=== PATIENT | female | born 1985 | race Caucasian/White ===

== ENCOUNTER 2018-12-29 13:46 | Emergency (ER) | payer SELFPAY ==
[~2018-12-29] VITALS: Ht 165.1 cm; Wt 90.7 kg
--- NOTE | 2018-12-29 14:35 | NUR ---
TO CXR WITH [employer].
[2018-12-29] MEDS ORDERED: ALBU2.5V4 INH (14:36)
[2018-12-29] MEDS ORDERED: LIDOCAINE GEL (14:36)
[2018-12-29] MEDS ORDERED: RT-ALBUINH IH (14:36)
--- NOTE | 2018-12-29 14:45 | NUR ---
PT AMB TO RESTROOM WITHOUT RESP DIFFICULTY. URINE OBTAINED, CONCENTRATED IN COLOR AND SENT TO LAB.
--- NOTE | 2018-12-29 14:50 | NUR ---
VENIPUNCTURE PERFORMED PER RN. PT RESTING ON CART WITH 95% SAO2 ON RM AIR, NO DISTRESS NOTED.
[2018-12-29] MEDS ORDERED: ONDANSETRON 4 MG/2 ML (SDV) Z0FRAN IVP ONE (15:00)
[2018-12-29] MEDS ORDERED: RT-ALBUTEROL/IPRATROPIUM 3 ML (DUONEB) VIAL INH ONE (15:00)
[2018-12-29] MEDS ORDERED: NS IV 1000 ML 1,000 ML IV SCH (15:00)
--- NOTE | 2018-12-29 15:05 | ED Cough/URI ---
General Chief Complaint: Respiratory Problems Stated Complaint: FEVER,NAUSE,SOB Nursing Triage Note: ARRIVED PER POV, C/O SOA NOT RELIEVED WITH BREATHING TX RENDERER. PT HAS NO COUGH, NO RESP DISTRESS NOTED. PT IS AFEBRILE, FEVER EARLIER IN WEEK. MASK PLACED ON PT. Sepsis Screen: No Definite Risk Source: patient History of Present Illness Date Seen by Provider: Dec 29, 2018 Time Seen by Provider: 13:55 Initial Comments 33-year-old female presents with complaints of fever and chills for 1 week. She also reports a cough for a week. She's had nausea and vomiting and she can't keep anything down. She reports that she's had no change in her bowels. Has had several episodes of vomiting. She has a history of asthma and has tried doing a breathing treatment but did not feel like it helped any. She denies having any ill contacts. She has not taken her temperature but felt like she was running a fever. She's had chills and shaking. Timing/Duration: week (one) Severity/Quality: sputum (thick white) Prior Episodes/Possible Cause: no prior episodes Associated Symptoms: chest pain/soreness (left posterior chest, worse with cough and deep inspiration), cough, fever/chills (subjective), shortness of breath, wheezing Allergies and Home Medications Allergies Coded Allergies: No Known Drug Allergies (Unverified , 12/29/18) Home Medications Albuterol Sulfate 1 Puff Puff, 2 PUFF IH Q4H, (Reported) 1 PUFF = 90 MCG Albuterol Sulfate 2.5 Mg/3 Ml Vial.neb, 2.5 MG INH Q4H PRN for SHORTNESS OF BREATH, (Reported) Levofloxacin 750 Mg Tablet, 750 MG PO DAILY Prescribed by: PELON SORIANORT on 12/29/18 1609 Ondansetron 4 Mg Tab.rapdis, 4 MG PO Q6H PRN for NAUSEA/VOMITING Prescribed by: PELON SORIANORT on 12/29/18 1606 Patient Home Medication List Home Medication List Reviewed: Yes Review of Systems Review of Systems Constitutional: see HPI, chills, fever, malaise EENTM: No ear discharge, No ear pain Respiratory: cough, short of breath; No stridor; wheezing Cardiovascular: chest pain (left posterior chest wall pain) Gastrointestinal: No abdominal pain, No constipation, No diarrhea, No dysphagia Genitourinary: No decreased output, No dysuria Skin: No change in color, No dryness, No rash Psychiatric/Neurological: Denies Anxiety Hematologic/Lymphatic: Denies Anemia Past Ocgpluw-Mvcocm-Yfepws Hx Past Med/Social Hx: Reviewed Nursing Past Med/Soc Hx Patient Social History Alcohol Use: Rarely Uses Recreational Drug Use: No Smoking Status: Current Everyday Smoker Type Used: Cigarettes 2nd Hand Smoke Exposure: Yes Recent Foreign Travel: No (N) Contact w/Someone Who Travel: No (N) Recent Infectious Disease Expo: No Recent Hopitalizations: No Physical Abuse: No Sexual Abuse: No Mistreated: No Seasonal Allergies Seasonal Allergies: No Past Medical History Surgeries: Yes (REMOVAL OF ANAL TUMOR) Hysterectomy Respiratory: Yes Asthma Cardiac: No Neurological: No [employer] History: Hysterectomy Gastrointestinal: Yes (ANAL CA) Musculoskeletal: No Endocrine: No HEENT: No Cancer: Yes (ANAL) Cervical What Type of Treatment Did You: Surgical Intervention HYSTERECTOMY Psychosocial: No Integumentary: No Blood Disorders: No Physical Exam Vital Signs - First Documented 12/29/18 13:55 Temp 98.5 Pulse 94 Resp 18 B/P (MAP) 132/67 (88) Pulse Ox 93 O2 Delivery Room Air Capillary Refill : Less Than 3 Seconds Height: 5'5.00" Weight: 200lbs. oz. [id number]; BMI Method:Stated General Appearance: WD/WN, no apparent distress Eyes: Bilateral Eye PERRL, Bilateral Eye EOMI HEENT: PERRL/EOMI, normal ENT inspection, pharynx normal Neck: non-tender, full range of motion, supple, normal inspection Respiratory: no respiratory distress, no accessory muscle use, decreased breath sounds, wheezing (throughout), other (tender to palpation on posterior left chest wall) Cardiovascular: regular rate, rhythm, no edema Gastrointestinal: normal bowel sounds, soft, no pulsatile mass, tenderness ( right side and epigastric area) Extremities: normal range of motion, non-tender, normal inspection Neurologic/Psychiatric: bearing maker II-XII nml as tested, no motor/sensory deficits, alert, normal mood/affect, oriented x 3 Skin: normal color, warm/dry Progress/Results/Core Measures Suspected Sepsis Recent Fever Within 48 Hours: No Infection Criteria Present: Suspected New Infection New/Unexplained Altered Menta: No Sepsis Screen: No Definite Risk SIRS Temperature:98.5 Pulse: 94 Respiratory Rate: 18 Laboratory Tests 12/29/18 14:50: White Blood Count 6.0 Blood Pressure 132 /67 Mean: 88 Laboratory Tests 12/29/18 14:50: Creatinine 0.80, Platelet Count 322, Total Bilirubin 0.5 Results/Orders Lab Results Laboratory Tests Test 12/29/18 14:45 12/29/18 14:50 Range/Units Urine Color YELLOW Urine Clarity CLOUDY Urine pH 6.5 5-9 Urine Specific [place] 1.015 L 1.016-1.022 Urine Protein TRACE NEGATIVE Urine Glucose (UA) NEGATIVE NEGATIVE Urine Ketones NEGATIVE NEGATIVE Urine Nitrite NEGATIVE NEGATIVE Urine Bilirubin NEGATIVE NEGATIVE Urine Urobilinogen 0.2 NORMAL MG/DL Urine Leukocyte Esterase 2+ H NEGATIVE Urine RBC (Auto) 1+ H NEGATIVE Urine RBC 0-2 /HPF Urine WBC 10-25 H /HPF Urine Squamous Epithelial Cells 10-25 H /HPF Urine Crystals NONE /LPF Urine Bacteria LARGE H /HPF Urine Casts NONE /LPF Urine Mucus LARGE H /LPF Urine Culture Indicated YES White Blood Count 6.0 4.3-11.0 10^3/uL Red Blood Count 4.29 L 4.35-5.85 10^6/uL Hemoglobin 11.7 11.5-16.0 G/DL Hematocrit 37 35-52 % Mean Corpuscular Volume 86 80-99 FL Mean Corpuscular Hemoglobin 27 25-34 PG Mean Corpuscular Hemoglobin Concent 32 32-36 G/DL Red Cell Distribution Width 16.7 H 10.0-14.5 % Platelet Count 322 130-400 10^3/uL Mean Platelet Volume 12.1 H 7.4-10.4 FL Neutrophils (%) (Auto) 71 42-75 % Lymphocytes (%) (Auto) 26 12-44 % Monocytes (%) (Auto) 2 0-12 % Eosinophils (%) (Auto) 0 0-10 % Basophils (%) (Auto) 0 0-10 % Neutrophils # (Auto) 4.2 1.8-7.8 X 10^3 Lymphocytes # (Auto) 1.6 1.0-4.0 X 10^3 Monocytes # (Auto) 0.1 0.0-1.0 X 10^3 Eosinophils # (Auto) 0.0 0.0-0.3 10^3/uL Basophils # (Auto) 0.0 0.0-0.1 10^3/uL Sodium Level 137 135-145 MMOL/L Potassium Level 3.6 3.6-5.0 MMOL/L Chloride Level 97 L 98-107 MMOL/L Carbon Dioxide Level 26 21-32 MMOL/L Anion Gap 14 5-14 MMOL/L Blood Urea Nitrogen 8 7-18 MG/DL Creatinine 0.80 0.60-1.30 MG/DL Estimat Glomerular Filtration Rate > 60 BUN/Creatinine Ratio 10 Glucose Level 95 70-105 MG/DL Calcium Level 9.1 8.5-10.1 MG/DL Corrected Calcium 9.3 8.5-10.1 MG/DL Total Bilirubin 0.5 0.1-1.0 MG/DL Aspartate Amino Transf (AST/SGOT) 20 5-34 U/L Alanine Aminotransferase (ALT/SGPT) 20 0-55 U/L Alkaline Phosphatase 110 40-136 U/L Total Protein 9.1 H 6.4-8.2 GM/DL Albumin 3.8 3.2-4.5 GM/DL My Orders Orders - PELON NOWAK MD Chest Pa/Lat (2 View) (12/29/18 14:27) Cbc With Automated Diff (12/29/18 14:27) Comprehensive Metabolic Panel (12/29/18 14:27) Urinalysis (12/29/18 14:27) Albuterol/Ipra Inhalation Soln (Duoneb I (12/29/18 15:00) Ns Iv 1000 Ml (Sodium Chloride 0.9%) (12/29/18 15:00) Ondansetron Injection (Zofran Injectio (12/29/18 15:00) Svn Small Volume Nebulizer (12/29/18 14:54) Urine Culture (12/29/18 14:45) Ceftriaxone For Iv Use (Rocephin For I (12/29/18 16:00) Medications Given in ED Current Medications Medications Dose Ordered Sig/Shaw Route Start Time Stop Time Status Last Admin Dose Admin Albuterol/ Ipratropium 3 ml ONCE ONCE INH 12/29/18 15:00 12/29/18 15:01 DC 12/29/18 15:48 3 ML Ceftriaxone Sodium 1000 mg/ Sterile Water 10 ml @ 200 mls/hr ONCE ONCE IV 12/29/18 16:00 12/29/18 16:02 DC 12/29/18 16:09 200 MLS/HR Ondansetron HCl 4 mg ONCE ONCE IVP 12/29/18 15:00 12/29/18 15:01 DC 12/29/18 15:54 4 MG Vital Signs/I&O 12/29/18 13:55 Temp 98.5 Pulse 94 Resp 18 B/P (MAP) 132/67 (88) Pulse Ox 93 O2 Delivery Room Air Capillary Refill : Less Than 3 Seconds Blood Pressure Mean: 88 Progress Note : Progress Note Check labs and CXR. Try Duoneb breathing treatment to see if that helps her breathing and chest pain. Zofran for nausea. Labs appear stable other than UTI on urinalysis. Her CXR shows Lingular pneumonia. Give Rocephin 1 gm IV and discharge on Levaquin for UTI and Pneumonia treatment. Zofran prn for n/v. Diagnostic Imaging Diagonstic Imaging: Xray Plain Films/CT/US/NM/MRI: chest Departure Impression Primary Impression: Cystitis without hematuria Additional Impressions: Asthma exacerbation Qualified Codes: J45.31 - Mild persistent asthma with (acute) exacerbation Lingular pneumonia Disposition: HOME, SELF-CARE Condition: Stable Departure-Patient Inst. Referrals: NO,LOCAL PHYSICIAN (PCP/Family) Primary Care Physician Patient Instructions: Asthma in Adults, Urinary Tract Infection, Adult (DC), Community-Acquired Pneumonia, Adult (DC) Scripts Levofloxacin (Levaquin) 750 Mg Tablet 750 MG PO DAILY for Pneumonia/UTI for 7 Days, #7 TAB Prov: PELON NOWAK MD 12/29/18 Ondansetron (Ondansetron Odt) 4 Mg Tab.rapdis 4 MG PO Q6H PRN for NAUSEA/VOMITING for 3 Days, #12 TAB Prov: PELON NOWAK MD 12/29/18 PELON NOWAK MD Dec 29, 2018 15:04
--- NOTE | 2018-12-29 15:07 | Diagnostic Imaging Report ---
INDICATION: Cough. COMPARISON: None available. TECHNIQUE: Two views of the chest were obtained. FINDINGS: Patchy consolidations are present within the lingula. No pleural effusion or pneumothorax. Heart is normal in size. Normal pulmonary vasculature. IMPRESSION: Lingular pneumonia. Advise followup PA and lateral chest radiographs in 4 weeks after appropriate medical management to ensure resolution. Dictated by: Dictated on workstation # [id number]
[2018-12-29 15:19] LABS: BILIRUBIN,URINE NEGATIVE (NEGATIVE); CLARITY,URINE CLOUDY; COLOR,URINE YELLOW; GLUCOSE, URINE (UA) NEGATIVE (NEGATIVE); KETONES,URINE NEGATIVE (NEGATIVE); NITRITE,URINE NEGATIVE (NEGATIVE); PH,URINE 6.5 (5-9); PROTEIN,URINE TRACE (NEGATIVE)
[2018-12-29 15:20] LABS: BACTERIA,URINE LARGE /HPF; LEUKOCYTE ESTERASE ,URINE 2+ (NEGATIVE); RBC,URINE 0-2 /HPF; UROBILINOGEN,URINE 0.2 MG/DL (NORMAL)
[2018-12-29 15:22] LABS: BASOPHILS % (AUTO) 0 % (0-10); EOSINOPHILS % (AUTO) 0 % (0-10); HEMATOCRIT 37 % (35-52); HEMOGLOBIN 11.7 G/DL (11.5-16.0); LYMPHOCYTES % (AUTO) 26 % (12-44); MEAN CORPUSCULAR HEMOGLOBIN 27 PG (25-34); MEAN CORPUSCULAR HGB CONC 32 G/DL (32-36); MEAN CORPUSCULAR VOLUME 86 FL (80-99); MEAN PLATELET VOLUME 12.1 FL (7.4-10.4); MONOCYTES % (AUTO) 2 % (0-12); NEUTROPHILS % (AUTO) 71 % (42-75); PLATELET COUNT 322 10^3/uL (130-400); RED CELL DISTRIBUTION WIDTH 16.7 % (10.0-14.5)
[2018-12-29 15:23] LABS: LYMPHOCYTES # (AUTO) 1.6 X 10^3 (1.0-4.0); MONOCYTES # (AUTO) 0.1 X 10^3 (0.0-1.0); NEUTROPHILS # (AUTO) 4.2 X 10^3 (1.8-7.8)
[2018-12-29 15:29] LABS: BUN/CREATININE RATIO 10; CALCIUM 9.1 MG/DL (8.5-10.1); CARBON DIOXIDE 26 MMOL/L (21-32); CHLORIDE 97 MMOL/L (98-107); GFR ESTIMATED > 60; GLUCOSE 95 MG/DL (70-105); POTASSIUM 3.6 MMOL/L (3.6-5.0); SODIUM 137 MMOL/L (135-145)
[2018-12-29 15:30] LABS: ALANINE AMINOTRANSFERASE 20 U/L (0-55); ALBUMIN 3.8 GM/DL (3.2-4.5); ALKALINE PHOSPHATASE 110 U/L (40-136); BILIRUBIN,TOTAL 0.5 MG/DL (0.1-1.0); TOTAL PROTEIN 9.1 GM/DL (6.4-8.2)
--- NOTE | 2018-12-29 15:50 | NUR ---
IV started at this time, IV started R FA 22 ga on 1st attempt. NS opened wide open.
[2018-12-29] MEDS ORDERED: cefTRIAXone FOR IV USE 1,000 MG in WATER (STERILE) FOR INJECTION 10 ML IV ONE (16:00)
[2018-12-29] MEDS ORDERED: CEPH-507 PO (16:06)
[2018-12-29] MEDS ORDERED: ONDA4TAB11 PO (16:06)
[2018-12-29] MEDS ORDERED: LEVO750T9 PO (16:09)
[2018-12-29 16:38] VITALS: BP 106/67
--- OUTSIDE RECORDS SUMMARY | 2018-12-30 13:51 | XMS REPORT ---
Author Author JUANITO LARA [facility] Address [address] [place] [address] Care Team Providers Care Home Performance Consultant Name Role Phone JUANITO LARA Unavailable PROBLEMS Unknown Problems ALLERGIES No Information ENCOUNTERS Encounter Location Date Diagnosis [facility] [address] [facility] [id number] [address], IMMUNIZATIONS No Known Immunizations SOCIAL HISTORY Never Assessed REASON FOR VISIT requests appt PLAN OF CARE VITAL SIGNS MEDICATIONS Unknown Medications RESULTS No Results PROCEDURES No Known procedures INSTRUCTIONS MEDICATIONS ADMINISTERED No Known Medications
== END 2018-12-29 16:38 | disposition home or self-care (01) ==
LOC: ER FS 13:49
DX: N30.90 Cystitis, unspecified without hematuria (principal); J45.901 Unspecified asthma with (acute) exacerbation; J18.8 Other pneumonia, unspecified organism; F17.210 Nicotine dependence, cigarettes, uncomplicated; Z79.51 Long term (current) use of inhaled steroids; Z90.710 Acquired absence of both cervix and uterus; Z87.19 Personal history of other diseases of the digestive system; Z85.41 Personal history of malignant neoplasm of cervix uteri
CPT/HCPCS: 36415; 71046; 80053; 81000; 85025; 87077; 87088